=== PATIENT | male | born 1995 | race Two or more races ===

== ENCOUNTER 2024-01-09 09:52 | Inpatient (IN) | payer OTHER ==
[~2024-01-09] VITALS: Ht 180.3 cm; Wt 76.8 kg
--- NOTE | 2024-01-09 11:01 | ED.PDOC ---
GI ASSESSMENT HPI Comments 28y M who presents to the ED for chief complaint of abdominal pain. Pt states he has been having abdominal pain for the past 4 days. Pt states the pain is located by the epigastric region, radiating to the RLQ, constant, rating the pain 4/10, with no associated exacerbating or relieving factors. Pt has associated nausea, vomiting and difficulty voiding but otherwise denies diarrhea, fever,cough, chills, dysuria, hematuria or hematemesis. Pt otherwise denies any recent changes to diet or any recent sick contacts. Pt otherwise has noted BP of 148/80 with all other vitals in normal range. Pt denies these symptoms in the past and denies any past surgeries. Pt denies any other symptoms at this time. Chief Complaint: Abdominal Pain Time Seen by MD: 10:58 Primary Care Provider: DENIES Reviewed Notes: Allergies Allergies: Coded Allergies: NO KNOWN ALLERGIES (Unverified , 01/09/24) Information Source: Patient Mode of Arrival: Ambulatory Brought in by: self Timing: Days Duration: Since onset Past Medical History Past Medical History (Other): heart murmur Surgical History: Denies all surgeries Family History Family History: Unknown Social History Smoker: Non-Smoker Alcohol: Denies ETOH Use Drugs: Marijuana Lives In: Home Constitutional: denies: chills, diaphoresis, fatigue, fever, malaise, sweats, weakness, others EENTM: denies: blurred vision, double vision, ear bleeding, ear discharge, ear drainage, ear pain, ear ringing, eye pain, eye redness, hearing loss, mouth pain, mouth swelling, nasal discharge, nose bleeding, nose congestion, nose pain, photophobia, tearing, throat pain, throat swelling, voice changes, others Respiratory: denies: cough, hemoptysis, orthopnea, SOB at rest, shortness of breath, SOB with excertion, stridor, wheezing, others Cardiovascular: denies: chest pain, dizzy spells, diaphoresis, Dyspnea on exertion, edema, irregular heart beat, left arm pain, lightheadedness, palpitations, PND, syncope, others Gastrointestinal: reports: abdominal pain, nausea, vomiting; denies: abdomen distended, blood streaked bowels, constipated, diarrhea, dysphagia, difficulty swallowing, hematemesis, melena, poor appetite, poor fluid intake, rectal bleeding, rectal pain, others Genitourinary: denies: burning, dysuria, flank pain, frequency, hematuria, incontinence, penile discharge, penile sore, pain, testicle pain, testicle swelling, urgency, others Neurological: denies: dizziness, fainting, headache, left sided numbness, left sided weakness, numbness, paresthesia, pre-existing deficit, right sided numbness, right sided weakness, seizure, speech problems, tingling, tremors, weakness, others Musculoskeletal: denies: back pain, gout, joint pain, joint swelling, muscle pain, muscle stiffness, neck pain, others Integumetry: denies: bruises, change in color, change in hair/nails, dryness, laceration, lesions, lumps, rash, wounds, others Allergic/Immunocompromised: denies: Difficulty Healing, Frequent Infections, Hives, Itching, others Hematologic/Lymphatic: denies: anemia, blood clots, easy bleeding, easy bruisin g, swollen glands, others Endocrine: denies: excessive hunger, excessive sweating, excessive thirst, excessive urination, flushing, intolerance to cold, intolerance to heat, unexplained weight gain, unexplained weight loss, others Psychiatric: denies: anxiety, bipolar disorder, depression, hopeless, panic disorder, schizophrenia, sleepless, suicidal, others All Other Systems: Reviewed and Negative Physical Exam General Appearance: Mild Distress HEENT: Other (Pupils symmetric, no facial asymmetry, moist mucous membranes) Neck: Full Range of Motion, Normal Inspection Respiratory: Lungs Clear, No Accessory Muscle Use, No Respiratory Distress, Normal Breath Sounds Cardiovascular: No Edema, No JVD, Regular Rate/Rhythm Breast Exam: Deferred Gastrointestinal: Epigastric, Soft, Suprapubic, Tenderness Genitalia: Deferred Pelvic: Deferred Rectal: Deferred Extremities: Normal inspection, Normal range of motion, Non-tender, No pedal edema Neurologic: Alert, No Motor Deficits, Normal Affect, Normal Mood, No Sensory Deficits Cerebellar Function: NOT DONE Reflexes: NOT DONE Skin: Dry, Normal Color, Warm Lymphatic: NOT DONE Was a procedure done? Was a procedure done?: No GI differential Dx Differential Diagnosis: Appendicitis, Constipation, Diverticular disease, Gastritis/PUD, Gastroenteritis, Hernia, Inflammatory BD, Pancreatitis, UTI, Dehydration, Electrolyte Imbalance, Food Poisoning, Bacterial, Parasitic, Viral, Kidney Stone X-Ray, Labs, Meds, VS Vital Signs Date Time Temp Pulse Resp B/P (MAP) Pulse Ox O2 Delivery O2 Flow Rate FiO2 01/09/24 10:09 97.8 76 16 148/80 (102) 97 Lab Test 01/09/24 11:00 01/09/24 10:07 Range/Units White Blood Count 11.7 H 4.4-10.8 10^3/uL Red Blood Count 5.03 4.5-5.90 10^6/uL Hemoglobin 15.8 13.5-17.5 g/dL Hematocrit 47.0 41.0-53.0 % Mean Corpuscular Volume 93.5 80.0-100.0 fL Mean Corpuscular Hemoglobin 31.4 28.0-32.0 pg Mean Corpuscular Hemoglobin Concent 33.6 32.0-36.0 g/dL Red Cell Distribution Width 13.1 11.8-14.3 % Platelet Count 276 140-450 10^3/uL Mean Platelet Volume 7.3 6.9-10.8 fL Neutrophils (%) (Auto) 80.8 H 37.0-80.0 % Lymphocytes (%) (Auto) 9.3 L 10.0-50.0 % Monocytes (%) (Auto) 9.3 0.0-12.0 % Eosinophils (%) (Auto) 0.3 0.0-7.0 % Basophils (%) (Auto) 0.3 0.0-2.0 % Neutrophils # (Auto) 9.4 H 1.6-8.6 10 ^3/uL Lymphocytes # (Auto) 1.1 0.4-5.4 10 ^3/uL Monocytes # (Auto) 1.1 0-1.3 10 ^3/uL Eosinophils # (Auto) 0 0-0.8 10 ^3/uL Basophils # (Auto) 0 0-0.2 10 ^3/uL Nucleated Red Blood Cells 0.0 % Sodium Level 139 136-145 mmol/L Potassium Level 3.7 3.5-5.1 mmol/L Chloride Level 106 98-107 mmol/L Carbon Dioxide Level 24 20-31 mmol/L Anion Gap 9 5-15 Blood Urea Nitrogen 13 9-23 mg/dL Creatinine 1.07 0.700-1.30 mg/dL Glomerular Filtration Rate Calc 98 >90 mL/min BUN/Creatinine Ratio 12.1 10.0-20.0 Serum Glucose 107 H 74-106 mg/dL Lactic Acid Level 0.8 0.4-2.0 mmol/L Calcium Level 10.3 8.7-10.4 mg/dL Total Bilirubin 0.5 0.2-1.0 mg/dL Aspartate Amino Transferase (AST) 13 13-40 U/L Alanine Aminotransferase (ALT) 11 7-40 U/L Alkaline Phosphatase 119 H 46-116 U/L Total Protein 8.4 H 5.7-8.2 g/dL Albumin 5.2 H 3.2-4.8 g/dL Urine Color Yellow Yellow Urine Clarity Clear Clear Urine pH 6.0 5.0-9.0 Urine Specific [place] 1.042 H 1.001-1.035 Urine Protein 1+ H Negative Urine Ketones 2+ H Negative Urine Blood 1+ H Negative /uL Urine Nitrite Negative Negative Urine Bilirubin Negative Negative Urine Urobilinogen Normal Negative mg/dL Urine Leukocyte Esterase Negative Negative /uL Urine RBC 10 0 - 3 /hpf Urine WBC 2 0 - 3 /hpf Urine Squamous Epithelial Cells Few <5 /hpf Urine Bacteria None seen None Seen /hpf Urine Mucus Few None Seen Urine Glucose Normal Normal mg/dL PROCEDURE(s): ABPL - CT AB PEL WO CON-NO ORAL OR IV REASON: suprapubic pain,n/v ORDER NUMBER(s): [id number], ACCESSION NUMBER(s): [id number] Procedure: CT CT AB PEL WO CON-NO ORAL OR IV 01/09/2024 10:55 AM Indication: suprapubic pain,n/v Comparison Study: None available at time of dictation. Technique: Axial images were obtained and reformatted in coronal and sagittal planes. All CT scans at this medical facility are performed using dose modulation techniques as appropriate to a performed exam including the following: Automated exposure control was utilized; adjustment of the MA and/or KV according to patient size; and use of iterative reconstruction technique. CT Dose: CTDI volume is 5.91 mGy. Dose-length product is 340.22 mGy*cm FINDINGS: Lower Chest: Unremarkable. Hepatobiliary: Unremarkable. Spleen: Unremarkable. Pancreas: Unremarkable. Adrenal Glands: Unremarkable. tract: The kidneys are normal in size bilaterally without hydronephrosis or nephrolithiasis. The urinary bladder is unremarkable. GI tract: The stomach is grossly normal in appearance. No evidence of small bowel obstruction. Circumferential mural thickening of distal transverse colon, splenic flexure and descending colon noted with mild pericolonic fat stranding adjacent to the splenic flexure. The appendix is not visualized. No inflammatory change is noted in the right lower quadrant. Lymphatics: No mesenteric, retroperitoneal or periportal lymphadenopathy. Vasculature: The abdominal aorta is normal in in caliber. Pelvic Organs: Unremarkable Bones/soft tissues: No acute osseous abnormality. A small fat-containing umbilical hernia noted. Other: None. IMPRESSION: 1. Colitis involving distal transverse colon, splenic flexure and descending colon. This could be infectious or inflammatory in etiology. Recommend clinical and biochemical correlation. X-Ray, Labs, Meds, VS Comment 28-year-old male with no significant past medical history complaining of epigastric pain radiating to the lower abdomen for the last 4 days, associated with nausea, vomiting and constipation Vitals remarkable for BP 148/80 Exam remarkable for epigastric and suprapubic tenderness to palpation CT abdomen and pelvis IMPRESSION: 1. Colitis involving distal transverse colon, splenic flexure and descending colon. This could be infectious or inflammatory in etiology. Recommend clinical and biochemical correlation. CBC remarkable for WBC 11.7, CMP unremarkable, UA protein, ketones, blood, 10 RBCs, 2 WBCs, mucus Patient treated with the following in the ED: 1 L 0.9 normal saline IV bolus, morphine 4 mg IV, Zofran 4 mg IV, Zosyn 4.5 g IV On re-evaluation, patient states pain has improved, vitals stable. Plan is to admit the patient for IV antibiotics, pain control and GI evaluation. Time of 1ST Reevaluation: 11:30 Reevaluation 1ST: Unchanged Time of 2ND Reevaluation: 11:55 Reevaluation 2ND: Improved Patient Education/Counseling: Diagnosis, Treatment Family Education/Counseling: No Family Present Departure 1 Departure Time of Disposition: 11:55 Impression: Primary Impression: Non-specific colitis Disposition: ADMITTED INPATIENT Admit to: Med Surg Condition: Fair Critical Care Note Critical Care Time?: No Stability Stability form required: No Heart Score Heart Score: Heart Score Response (Comments) Value History N/A 0 EKG N/A 0 Age N/A 0 Risk Factors N/A 0 Troponin N/A 0 Total 0 I personally scribed for DMITRI MATHUR MD ([facility]) on 01/09/24 at 11:01. Electronically submitted by Sachin Brooks ([facility]). I personally scribed for DMITRI MATHUR MD ([facility]) on 01/09/24 at 12:04. Electronically submitted by Sachin Brooks ([facility]). DMITRI MATHUR MD Jan 09, 2024 11:01
[2024-01-09 11:17] LABS: Urine Bacteria None Seen /hpf (None Seen)
[2024-01-09 11:35] LABS: Basophils # (auto) 0 10 ^3/uL (0-0.2); Basophils % (auto) 0.3 % (0.0-2.0); Eosinophils # (auto) 0 10 ^3/uL (0-0.8); Eosinophils % (auto) 0.3 % (0.0-7.0); Hemoglobin 15.8 g/dL (13.5-17.5); Lymphocytes # (auto) 1.1 10 ^3/uL (0.4-5.4); Lymphocytes % (auto) 9.3 % (10.0-50.0); Mean Corpuscular Hemoglobin 31.4 pg (28.0-32.0); Mean Corpuscular Hgb Conc. 33.6 g/dL (32.0-36.0); Mean Corpuscular Volume 93.5 fL (80.0-100.0); Monocytes # (auto) 1.1 10 ^3/uL (0-1.3); Monocytes % (auto) 9.3 % (0.0-12.0); Neutrophils # (auto) 9.4 10 ^3/uL (1.6-8.6); Neutrophils % (auto) 80.8 % (37.0-80.0); Platelet Count (auto) 276 10^3/uL (140-450); Red Blood Cells 5.03 10^6/uL (4.5-5.90); Red Cell Distribution Width 13.1 % (11.8-14.3); White Blood Cell 11.7 10^3/uL (4.4-10.8)
[2024-01-09 11:42] LABS: Alanine Aminotransferase 11 U/L (7-40); Albumin 5.2 g/dL (3.2-4.8); Alkaline Phosphatase 119 U/L (46-116); Anion Gap 9 (5-15); Aspartate Aminotransferase 13 U/L (13-40); BUN/Creatinine Ratio 12.1 (10.0-20.0); Bilirubin, Total 0.5 mg/dL (0.2-1.0); Blood Urea Nitrogen 13 mg/dL (9-23); Calcium 10.3 mg/dL (8.7-10.4); Carbon Dioxide 24 mmol/L (20-31); Chloride 106 mmol/L (98-107); Glucose 107 mg/dL (74-106); Potassium 3.7 mmol/L (3.5-5.1); Sodium 139 mmol/L (136-145); Total Protein 8.4 g/dL (5.7-8.2)
[2024-01-09 11:45] LABS: Urine Blood 1+ /uL (Negative); Urine Clarity Clear (Clear); Urine Color Yellow (Yellow); Urine Mucus FEW (None Seen); Urine Protein, UAD 1+ (Negative); Urine Specific Gravity 1.042 (1.001-1.035); Urine Urobilinogen Normal (Negative); Urine WBC 2 /hpf (0 - 3)
--- NOTE | 2024-01-09 11:49 | DVH ---
Procedure: CT CT AB PEL WO CON-NO ORAL OR IV 01/09/2024 10:55 AM Indication: suprapubic pain,n/v Comparison Study: None available at time of dictation. Technique: Axial images were obtained and reformatted in coronal and sagittal planes. All CT scans at this medical facility are performed using dose modulation techniques as appropriate t o a performed exam including the following: Automated exposure control was utilized; adjustment of th e MA and/or KV according to patient size; and use of iterative reconstruction technique. CT Dose: CTDI volume is 5.91 mGy. Dose-length product is 340.22 mGy*cm FINDINGS: Lower Chest: Unremarkable. Hepatobiliary: Unremarkable. Spleen: Unremarkable. Pancreas: Unremarkable. Adrenal Glands: Unremarkable. tract: The kidneys are normal in size bilaterally without hydronephrosis or nephrolithiasis. The urinary bladder is unremarkable. GI tract: The stomach is grossly normal in appearance. No evidence of small bowel obstruction. Circum ferential mural thickening of distal transverse colon, splenic flexure and descending colon noted wit h mild pericolonic fat stranding adjacent to the splenic flexure. The appendix is not visualized. No inflammatory change is noted in the right lower quadrant. Lymphatics: No mesenteric, retroperitoneal or periportal lymphadenopathy. Vasculature: The abdominal aorta is normal in in caliber. Pelvic Organs: Unremarkable Bones/soft tissues: No acute osseous abnormality. A small fat-containing umbilical hernia noted. Other: None. IMPRESSION: 1. Colitis involving distal transverse colon, splenic flexure and descending colon. This could be in fectious or inflammatory in etiology. Recommend clinical and biochemical correlation.
[2024-01-09] MEDS: ONDANSETRON HCL 4 MG/2 ML VIAL IV ONE (12:56)
[2024-01-09] MEDS: MORPHINE SULFATE 4 MG/ML SYR/VIAL IV ONE (13:00)
[2024-01-09] MEDS: SODIUM CHLORIDE 0.9% 2,250 ML IV ONE (13:00)
[2024-01-09] MEDS: PIPERACILLIN-TAZO 4.5GM 100 ML IV ONE (13:01)
[2024-01-09] MEDS: HYDROcodone-ACET 5/325MG TAB PO ONE (14:04)
--- NOTE | 2024-01-09 14:19 | DVHHP2 ---
History of Present Illness Reason for Visit: Abdominal pain History of Present Illness 28-year-old with no stated past medical history comes to the ED for complaints of abdominal pain for the last 4 days patient describes left upper quadrant pain consistently with no stated worsening factors but associated with nausea vomiting trouble with diet denies having any diarrhea or or feelings of constipation denies having hematuria or melena on evaluation in the ED patient had a CT scan showing that he had signs of acute infectious colitis patient was recommended for admission for further evaluation and treatment Review of Systems Constitutional: Yes: Fever, Weakness; No: Chills, Sweats, Malaise, Other Eyes: No: Pain, Vision change, Conjunctivae inflammation, Eyelid inflammation, Other, Redness ENT: No: Ear pain, Ear discharge, Nose pain, Nose discharge, Nose congestion, Mouth pain, Mouth swelling, Throat pain, Throat swelling, Other Respiratory: No: Cough, Dry, Shortness of breath, SOB with excertion, Wheezing, Hemoptysis, Pleuritic Pain, Sputum, Wheezing, Other Cardiovascular: No: Chest Pain, Palpitations, Orthopnea, Paroxysmal Noc. Dyspnea, Edema, Lt Headedness, Other Gastrointestinal: Nausea, Vomiting, Abdominal Pain; No: Diarrhea, Constipation, Melena, Hematochezia, Other Genitourinary: No Dysuria, No Frequency, No Incontinence, No Hematuria, No Retention, No Other Musculoskeletal: No: other, neck pain, shoulder pain, arm pain, back pain, hand pain, leg pain, foot pain Skin: No: Rash, Lesions, Jaundice, Bruising, Other Neurological: No: Weakness, Numbness, Incoordination, Change in speech, Confusion, Seizures, Other Allergies: Coded Allergies: NO KNOWN ALLERGIES (Unverified , 01/09/24) Exam Vital Signs Vital Signs Date Time Temp Pulse Resp B/P (MAP) Pulse Ox O2 Delivery O2 Flow Rate FiO2 01/09/24 13:40 70 15 118/74 01/09/24 13:05 97.1 99 97.1 General Appearance: Alert, Oriented X3, mild distress HEENT: Atraumatic, PERRLA, EOMI Respiratory: Clear to auscultation, Normal air movement Cardiovascular: Regular rate, Normal S1, Normal S2 Abdominal: Normal bowel sounds, Soft, No tenderness Extremities: No clubbing, No cyanosis, No edema Skin: No rashes, No breakdown, No significant lesion Neuro: Normal gait, Normal speech Psych/Mental Status: Mood NL Labs/Xrays Labs Test 01/09/24 11:00 01/09/24 10:07 Range/Units White Blood Count 11.7 H 4.4-10.8 10^3/uL Red Blood Count 5.03 4.5-5.90 10^6/uL Hemoglobin 15.8 13.5-17.5 g/dL Hematocrit 47.0 41.0-53.0 % Mean Corpuscular Volume 93.5 80.0-100.0 fL Mean Corpuscular Hemoglobin 31.4 28.0-32.0 pg Mean Corpuscular Hemoglobin Concent 33.6 32.0-36.0 g/dL Red Cell Distribution Width 13.1 11.8-14.3 % Platelet Count 276 140-450 10^3/uL Mean Platelet Volume 7.3 6.9-10.8 fL Neutrophils (%) (Auto) 80.8 H 37.0-80.0 % Lymphocytes (%) (Auto) 9.3 L 10.0-50.0 % Monocytes (%) (Auto) 9.3 0.0-12.0 % Eosinophils (%) (Auto) 0.3 0.0-7.0 % Basophils (%) (Auto) 0.3 0.0-2.0 % Neutrophils # (Auto) 9.4 H 1.6-8.6 10 ^3/uL Lymphocytes # (Auto) 1.1 0.4-5.4 10 ^3/uL Monocytes # (Auto) 1.1 0-1.3 10 ^3/uL Eosinophils # (Auto) 0 0-0.8 10 ^3/uL Basophils # (Auto) 0 0-0.2 10 ^3/uL Nucleated Red Blood Cells 0.0 % Sodium Level 139 136-145 mmol/L Potassium Level 3.7 3.5-5.1 mmol/L Chloride Level 106 98-107 mmol/L Carbon Dioxide Level 24 20-31 mmol/L Anion Gap 9 5-15 Blood Urea Nitrogen 13 9-23 mg/dL Creatinine 1.07 0.700-1.30 mg/dL Glomerular Filtration Rate Calc 98 >90 mL/min BUN/Creatinine Ratio 12.1 10.0-20.0 Serum Glucose 107 H 74-106 mg/dL Lactic Acid Level 0.8 0.4-2.0 mmol/L Calcium Level 10.3 8.7-10.4 mg/dL Total Bilirubin 0.5 0.2-1.0 mg/dL Aspartate Amino Transferase (AST) 13 13-40 U/L Alanine Aminotransferase (ALT) 11 7-40 U/L Alkaline Phosphatase 119 H 46-116 U/L Total Protein 8.4 H 5.7-8.2 g/dL Albumin 5.2 H 3.2-4.8 g/dL Urine Color Yellow Yellow Urine Clarity Clear Clear Urine pH 6.0 5.0-9.0 Urine Specific [place] 1.042 H 1.001-1.035 Urine Protein 1+ H Negative Urine Ketones 2+ H Negative Urine Blood 1+ H Negative /uL Urine Nitrite Negative Negative Urine Bilirubin Negative Negative Urine Urobilinogen Normal Negative mg/dL Urine Leukocyte Esterase Negative Negative /uL Urine RBC 10 0 - 3 /hpf Urine WBC 2 0 - 3 /hpf Urine Squamous Epithelial Cells Few <5 /hpf Urine Bacteria None seen None Seen /hpf Urine Mucus Few None Seen Urine Glucose Normal Normal mg/dL Assessment/Plan Assessment/Plan Admit to [facility] Infectious colitis IV hydration IV antibiotics P.r.n. medication for pain management We will continue with Zosyn CT scan shows signs of transverse and distal colon colitis Plan discussed with: Patient Problem List: (1) Non-specific colitis Date of Service: Jan 09, 2024 Billing Provider: PEACE LEMON MD Common Visit Codes: [id number] INP/OBS CARE (HIGH) PEACE LEMON MD Jan 09, 2024 14:19
[2024-01-09] MEDS ORDERED: DOCUSATE SOD 100 MG CAP PO PRN (14:45)
[2024-01-09] MEDS ORDERED: ONDANSETRON HCL 4 MG/2 ML VIAL IV PRN (14:45)
[2024-01-09] MEDS ORDERED: HYDROcodone-ACET 5/325MG TAB PO PRN (14:45)
[2024-01-09] MEDS ORDERED: TEMAZEPAM 15 MG CAP PO PRN (14:45)
[2024-01-09] MEDS ORDERED: MAALOX PLUS or MAALOX 30 ML PO PRN (14:45)
[2024-01-09] MEDS ORDERED: MORPHINE SULFATE INJ 2 MG/ml SYRG IV PRN (14:45)
[2024-01-09] MEDS ORDERED: LORazepam 0.5 MG TAB PO PRN (14:45)
[2024-01-09] MEDS: SODIUM CHLORIDE 0.9% 1,000 ML IV SCH (15:42)
[2024-01-09 16:17] VITALS: BP 108/75; PULSE 56; RESP 12; O2SAT 99
[2024-01-09 20:10] VITALS: BP 119/78; PULSE 83; RESP 18; TEMP 98.6; O2SAT 95
[2024-01-09] MEDS: PIPERACILLIN-TAZOB 3.375GM 100 ML IV SCH ×2 (21:50→22:00)
[2024-01-09 22:36] VITALS: BP 130/65; PULSE 65; RESP 18; TEMP 98.5; O2SAT 97
[2024-01-10] VITALS (8 sets, daily range): BP systolic 102–126; BP diastolic 51–64; PULSE 51–64; RESP 15–18; TEMP 98–98.8; O2SAT 94–99
[2024-01-10 06:15] LABS: Basophils # (auto) 0 10 ^3/uL (0-0.2); Basophils % (auto) 0.5 % (0.0-2.0); Eosinophils # (auto) 0.1 10 ^3/uL (0-0.8); Eosinophils % (auto) 1.5 % (0.0-7.0); Hematocrit 38.5 % (41.0-53.0); Hemoglobin 13.3 g/dL (13.5-17.5); Lymphocytes # (auto) 1.2 10 ^3/uL (0.4-5.4); Lymphocytes % (auto) 20.2 % (10.0-50.0); Mean Corpuscular Hemoglobin 31.8 pg (28.0-32.0); Mean Corpuscular Hgb Conc. 34.4 g/dL (32.0-36.0); Mean Corpuscular Volume 92.5 fL (80.0-100.0); Monocytes # (auto) 0.7 10 ^3/uL (0-1.3); Monocytes % (auto) 12.1 % (0.0-12.0); Neutrophils # (auto) 3.8 10 ^3/uL (1.6-8.6); Neutrophils % (auto) 65.7 % (37.0-80.0); Platelet Count (auto) 218 10^3/uL (140-450); Red Blood Cells 4.16 10^6/uL (4.5-5.90); Red Cell Distribution Width 13.2 % (11.8-14.3); White Blood Cell 5.8 10^3/uL (4.4-10.8)
[2024-01-10 06:24] LABS: Chloride 110 mmol/L (98-107); Potassium 3.8 mmol/L (3.5-5.1); Sodium 142 mmol/L (136-145)
[2024-01-10 06:25] LABS: Anion Gap 9 (5-15); Calcium 9.5 mg/dL (8.7-10.4); Carbon Dioxide 23 mmol/L (20-31)
[2024-01-10 06:30] LABS: BUN/Creatinine Ratio 13.3 (10.0-20.0); Blood Urea Nitrogen 13 mg/dL (9-23); Glucose 83 mg/dL (74-106)
[2024-01-10] MEDS: ACETAMINOPHEN 325 MG TAB PO PRN (09:53)
--- NOTE | 2024-01-10 13:25 | DVHPN2 ---
Reviewed: Care Plan, H&P, Labs, Medications, Previous Orders, Radiology Changes from previous H/P or p: No Changes Eyes: No Pain, No Vision change, No Conjunctivae inflammation, No Eyelid inflammation, No Other, No Redness ENT: No Ear pain, No Ear discharge, No Nose pain, No Nose discharge, No Nose congestion, No Mouth pain, No Mouth swelling, No Throat pain, No Throat swelling, No Other Cardiovascular: No Chest Pain, No Palpitations, No Orthopnea, No Paroxysmal Noc. Dyspnea, No Edema, No Lt Headedness, No Other Respiratory: No Cough, No Dry, No Shortness of breath, No SOB with excertion, No Wheezing, No Hemoptysis, No Pleuritic Pain, No Sputum, No Other Gastrointestinal: Nausea, Vomiting, Abdominal Pain; No Diarrhea, No Constipation, No Melena, No Hematochezia, No Other Genitourinary: No Dysuria, No Frequency, No Incontinence, No Hematuria, No Retention, No Other Musculoskeletal: No other, No neck pain, No shoulder pain, No arm pain, No back pain, No hand pain, No leg pain, No foot pain Skin: No Rash, No Lesions, No Jaundice, No Bruising, No Other Objective Vitals Vital Signs Date Time Temp Pulse Resp B/P (MAP) Pulse Ox O2 Delivery O2 Flow Rate FiO2 01/10/24 13:00 98.8 56 16 126/58 (80) 96 98.8 01/09/24 22:36 Room Air* 0 21 Intake/Output Intake and Output 01/10/24 07:00 Intake Total 1075 ml Output Total 0 ml Balance 1075 ml Intake Oral 0 ml IV Total 1075 ml Output Urine Total 0 ml Medications Current Medications Medications Dose Ordered Sig/Charito Route Start Time Stop Time Status Last Admin Dose Admin Sodium Chloride 1,000 ml @ 100 mls/hr Q10H IV 01/09/24 14:45 01/09/24 20:48 100 MLS/HR Lorazepam 0.5 mg Q6HP PRN PO 01/09/24 14:45 Al Hydrox/Mg Hydrox/Simethicone 30 ml Q6HP PRN PO 01/09/24 14:45 Docusate Sodium 100 mg BIDPRN PRN PO 01/09/24 14:45 Acetaminophen 650 mg Q6HP PRN PO 01/09/24 14:45 01/10/24 09:53 650 MG Temazepam 15 mg QHSP PRN PO 01/09/24 14:45 Acetaminophen/ Hydrocodone Bitart 1 tab Q4HP PRN PO 01/09/24 14:45 Ondansetron HCl 4 mg Q4HP PRN IV 01/09/24 14:45 Morphine Sulfate 2 mg Q4HPRN PRN IV 01/09/24 14:45 Piperacillin Sod/ Tazobactam Sod 100 ml @ 25 mls/hr Q6H IV 01/09/24 22:00 01/10/24 09:44 25 MLS/HR Laboratory Results Laboratory Tests 01/10/24 05:42 Chemistry Test 01/10/24 05:42 Calcium Level 9.5 mg/dL (8.7-10.4) Urinalysis Test 01/09/24 10:07 Urine Color Yellow (Yellow) Urine Clarity Clear (Clear) Urine pH 6.0 (5.0-9.0) Urine Specific [place] 1.042 (1.001-1.035) Urine Protein 1+ (Negative) H Urine Ketones 2+ (Negative) H Urine Blood 1+ /uL (Negative) H Urine Nitrite Negative (Negative) Urine Bilirubin Negative (Negative) Urine Urobilinogen Normal mg/dL (Negative) Urine Leukocyte Esterase Negative /uL (Negative) Urine RBC 10 /hpf (0 - 3) Urine WBC 2 /hpf (0 - 3) Urine Squamous Epithelial Cells Few /hpf (<5) Urine Bacteria None seen /hpf (None Seen) Urine Mucus Few (None Seen) Urine Glucose Normal mg/dL (Normal) Labs and/or images reviewed: Labs reviewed by me, Image(s) reviewed by me Assessment/Plan Assessment/Plan Acute colitis: Zosyn Acute abdominal pain Acute dehydration: IV fluids 150 per hour Keep NPO GI consult Plan discussed with: Patient Date of Service: Jan 10, 2024 Billing Provider: JESSY PURI MD Common Visit Codes: [id number] INP/OBS CARE(HIGH) JESSY PURI MD Jan 10, 2024 13:25
[2024-01-10] MEDS: LACTATED RINGER'S 1,000 ML IV SCH (15:00)
--- NOTE | 2024-01-10 18:12 | DVHINCON2 ---
Date of service: Jan 10, 2024 History of Present Illness 28 y/o M pt with no PMH admitted with diarrhea, N/V since past few days. Denies abd pain/GIB. Unsure if any food poisoning, eats outside mostly. No similar sx in the past. Never had EGD/colo Past Medical History Reviewed Past Surgical History Reviewed Family History: Patient reports no known family medical history. Allergies: Coded Allergies: NO KNOWN ALLERGIES (Unverified , 01/09/24) Home Meds No Active Prescriptions or Reported Meds Current Medications Current Medications Medications (Trade) Dose Ordered Sig/Charito Route PRN Reason Start Time Stop Time Status Last Admin Piperacillin Sod/ Tazobactam Sod 100 ml @ 25 mls/hr Q6HR IV 01/09/24 22:00 01/09/24 22:01 DC 01/09/24 21:50 Piperacillin Sod/ Tazobactam Sod 100 ml @ 25 mls/hr Q6H IV 01/09/24 22:00 01/10/24 16:05 Lactated Ringer's 1,000 ml @ 150 mls/hr Q6H40M IV 01/10/24 15:00 Review of Systems 14 point ROS neg except mentioned above Vital Signs Vital Signs Date Time Temp Pulse Resp B/P (MAP) Pulse Ox O2 Delivery O2 Flow Rate FiO2 01/10/24 17:12 98.1 64 16 110/64 (79) 99 98.1 01/09/24 22:36 Room Air* 0 21 Physical Exam GE in no distress CVS: S1S2+ Lungs clear Abdomen: soft, nondistended, tender, BS+ Labs/Diagnostic Data Labs Test 01/10/24 05:42 01/09/24 11:00 01/09/24 10:07 Range/Units White Blood Count 5.8 # 4.4-10.8 10^3/uL Red Blood Count 4.16 L 4.5-5.90 10^6/uL Hemoglobin 13.3 #L 13.5-17.5 g/dL Hematocrit 38.5 #L 41.0-53.0 % Mean Corpuscular Volume 92.5 80.0-100.0 fL Mean Corpuscular Hemoglobin 31.8 28.0-32.0 pg Mean Corpuscular Hemoglobin Concent 34.4 32.0-36.0 g/dL Red Cell Distribution Width 13.2 11.8-14.3 % Platelet Count 218 140-450 10^3/uL Mean Platelet Volume 7.1 6.9-10.8 fL Neutrophils (%) (Auto) 65.7 37.0-80.0 % Lymphocytes (%) (Auto) 20.2 10.0-50.0 % Monocytes (%) (Auto) 12.1 H 0.0-12.0 % Eosinophils (%) (Auto) 1.5 0.0-7.0 % Basophils (%) (Auto) 0.5 0.0-2.0 % Neutrophils # (Auto) 3.8 1.6-8.6 10 ^3/uL Lymphocytes # (Auto) 1.2 0.4-5.4 10 ^3/uL Monocytes # (Auto) 0.7 0-1.3 10 ^3/uL Eosinophils # (Auto) 0.1 0-0.8 10 ^3/uL Basophils # (Auto) 0 0-0.2 10 ^3/uL Nucleated Red Blood Cells 0.0 % Sodium Level 142 136-145 mmol/L Potassium Level 3.8 3.5-5.1 mmol/L Chloride Level 110 H 98-107 mmol/L Carbon Dioxide Level 23 20-31 mmol/L Anion Gap 9 5-15 Blood Urea Nitrogen 13 9-23 mg/dL Creatinine 0.98 0.700-1.30 mg/dL Glomerular Filtration Rate Calc 109 >90 mL/min BUN/Creatinine Ratio 13.3 10.0-20.0 Serum Glucose 83 74-106 mg/dL Calcium Level 9.5 8.7-10.4 mg/dL Lactic Acid Level 0.8 0.4-2.0 mmol/L Total Bilirubin 0.5 0.2-1.0 mg/dL Aspartate Amino Transferase (AST) 13 13-40 U/L Alanine Aminotransferase (ALT) 11 7-40 U/L Alkaline Phosphatase 119 H 46-116 U/L Total Protein 8.4 H 5.7-8.2 g/dL Albumin 5.2 H 3.2-4.8 g/dL Urine Color Yellow Yellow Urine Clarity Clear Clear Urine pH 6.0 5.0-9.0 Urine Specific [place] 1.042 H 1.001-1.035 Urine Protein 1+ H Negative Urine Ketones 2+ H Negative Urine Blood 1+ H Negative /uL Urine Nitrite Negative Negative Urine Bilirubin Negative Negative Urine Urobilinogen Normal Negative mg/dL Urine Leukocyte Esterase Negative Negative /uL Urine RBC 10 0 - 3 /hpf Urine WBC 2 0 - 3 /hpf Urine Squamous Epithelial Cells Few <5 /hpf Urine Bacteria None seen None Seen /hpf Urine Mucus Few None Seen Urine Glucose Normal Normal mg/dL Assessment #Diarrhea, N/V #Colitis of TC and DC on CTAP #Abd pain, N/V -Acute sx likely 2/2 acute GE -On IV abx. Monitor clinical course -Plan colonoscopy only if sx persists or any GIB occurs -Advance diet -Care plan discussed with pt in detail Thank you for the consult Plan discussed with: Patient PAVAN NICHOLS MD Jan 10, 2024 18:12
[2024-01-11] VITALS (8 sets, daily range): BP systolic 103–134; BP diastolic 49–89; PULSE 51–86; RESP 13–17; TEMP 97.5–98.3; O2SAT 97–98
--- NOTE | 2024-01-11 11:08 | DVHPN2 ---
Reviewed: Care Plan, H&P, Labs, Medications, Previous Orders, Radiology Changes from previous H/P or p: No Changes Eyes: No Pain, No Vision change, No Conjunctivae inflammation, No Eyelid inflammation, No Other, No Redness ENT: No Ear pain, No Ear discharge, No Nose pain, No Nose discharge, No Nose congestion, No Mouth pain, No Mouth swelling, No Throat pain, No Throat swelling, No Other Cardiovascular: No Chest Pain, No Palpitations, No Orthopnea, No Paroxysmal Noc. Dyspnea, No Edema, No Lt Headedness, No Other Respiratory: No Cough, No Dry, No Shortness of breath, No SOB with excertion, No Wheezing, No Hemoptysis, No Pleuritic Pain, No Sputum, No Other Gastrointestinal: Nausea, Vomiting, Abdominal Pain; No Diarrhea, No Constipation, No Melena, No Hematochezia, No Other Genitourinary: No Dysuria, No Frequency, No Incontinence, No Hematuria, No Retention, No Other Musculoskeletal: No other, No neck pain, No shoulder pain, No arm pain, No back pain, No hand pain, No leg pain, No foot pain Skin: No Rash, No Lesions, No Jaundice, No Bruising, No Other Objective Vitals Vital Signs Date Time Temp Pulse Resp B/P (MAP) Pulse Ox O2 Delivery O2 Flow Rate FiO2 01/11/24 09:00 97.7 53 17 127/74 (91) 97 97.7 01/10/24 20:00 Room Air* 0 21 Intake/Output Intake and Output 01/11/24 07:00 Intake Total 1825 ml Balance 1825 ml Intake Oral 500 ml IV Total 1325 ml # Voids 9 Medications Current Medications Medications Dose Ordered Sig/Charito Route Start Time Stop Time Status Last Admin Dose Admin Lorazepam 0.5 mg Q6HP PRN PO 01/09/24 14:45 Al Hydrox/Mg Hydrox/Simethicone 30 ml Q6HP PRN PO 01/09/24 14:45 Docusate Sodium 100 mg BIDPRN PRN PO 01/09/24 14:45 Acetaminophen 650 mg Q6HP PRN PO 01/09/24 14:45 01/10/24 09:53 650 MG Temazepam 15 mg QHSP PRN PO 01/09/24 14:45 Acetaminophen/ Hydrocodone Bitart 1 tab Q4HP PRN PO 01/09/24 14:45 Ondansetron HCl 4 mg Q4HP PRN IV 01/09/24 14:45 Morphine Sulfate 2 mg Q4HPRN PRN IV 01/09/24 14:45 Piperacillin Sod/ Tazobactam Sod 100 ml @ 25 mls/hr Q6H IV 01/09/24 22:00 01/11/24 10:05 25 MLS/HR Lactated Ringer's 1,000 ml @ 150 mls/hr Q6H40M IV 01/10/24 15:00 01/11/24 06:48 150 MLS/HR Laboratory Results Laboratory Tests 01/10/24 05:42 Urinalysis Test 01/09/24 10:07 Urine Color Yellow (Yellow) Urine Clarity Clear (Clear) Urine pH 6.0 (5.0-9.0) Urine Specific [place] 1.042 (1.001-1.035) Urine Protein 1+ (Negative) H Urine Ketones 2+ (Negative) H Urine Blood 1+ /uL (Negative) H Urine Nitrite Negative (Negative) Urine Bilirubin Negative (Negative) Urine Urobilinogen Normal mg/dL (Negative) Urine Leukocyte Esterase Negative /uL (Negative) Urine RBC 10 /hpf (0 - 3) Urine WBC 2 /hpf (0 - 3) Urine Squamous Epithelial Cells Few /hpf (<5) Urine Bacteria None seen /hpf (None Seen) Urine Mucus Few (None Seen) Urine Glucose Normal mg/dL (Normal) Labs and/or images reviewed: Labs reviewed by me, Image(s) reviewed by me Assessment/Plan Assessment/Plan Acute colitis: Zosyn Acute abdominal pain Acute dehydration: IV fluids 150 per hour Keep NPO GI consult from Dr Sosa pending Plan discussed with: Patient My Orders Orders - JESSY PURI MD Procedure Category Date Status Time * 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
--- NOTE | 2024-01-11 12:26 | DVHINCON2 ---
Date of service: Jan 11, [address] Richardson Reason for Consultation Abdominal pain diarrhea History of Present Illness This 28-year-old male presented to the emergency room with complaints of abdominal pain and periumbilical area in both lower quadrants verbal three four days with diarrhea Patient denied any unusual food ingestion no history of any travel No rectal bleeding no nausea vomiting or other upper GI symptoms CT scan showed possible mild colitis and hence the reason for GI Patient is already feeling better now without any major symptoms Past Medical History Unremarkable Past Surgical History None Family History: Patient reports no known family medical history. Family History Noncontributory Social History Denies smoking or drinking Allergies: Coded Allergies: NO KNOWN ALLERGIES (Unverified , 01/09/24) Home Meds No Active Prescriptions or Reported Meds Current Medications Current Medications Medications (Trade) Dose Ordered Sig/Charito Route PRN Reason Start Time Stop Time Status Last Admin Lactated Ringer's 1,000 ml @ 150 mls/hr Q6H40M IV 01/10/24 15:00 01/11/24 06:48 Review of Systems Noncontributing Vital Signs Vital Signs Date Time Temp Pulse Resp B/P (MAP) Pulse Ox O2 Delivery O2 Flow Rate FiO2 01/11/24 09:00 97.7 53 17 127/74 (91) 97 97.7 01/10/24 20:00 Room Air* 0 21 Physical Exam Originally built and nourished male in no acute distress Vital stable HEENT examination no pallor no icterus Neck is supple no lymph nodes Lungs Cardiovascular unremarkable Abdomen soft mild tenderness in both lower quadrants no rigidity no guarding No masses Labs/Diagnostic Data Labs Test 01/10/24 05:42 01/09/24 11:00 01/09/24 10:07 Range/Units White Blood Count 5.8 # 4.4-10.8 10^3/uL Red Blood Count 4.16 L 4.5-5.90 10^6/uL Hemoglobin 13.3 #L 13.5-17.5 g/dL Hematocrit 38.5 #L 41.0-53.0 % Mean Corpuscular Volume 92.5 80.0-100.0 fL Mean Corpuscular Hemoglobin 31.8 28.0-32.0 pg Mean Corpuscular Hemoglobin Concent 34.4 32.0-36.0 g/dL Red Cell Distribution Width 13.2 11.8-14.3 % Platelet Count 218 140-450 10^3/uL Mean Platelet Volume 7.1 6.9-10.8 fL Neutrophils (%) (Auto) 65.7 37.0-80.0 % Lymphocytes (%) (Auto) 20.2 10.0-50.0 % Monocytes (%) (Auto) 12.1 H 0.0-12.0 % Eosinophils (%) (Auto) 1.5 0.0-7.0 % Basophils (%) (Auto) 0.5 0.0-2.0 % Neutrophils # (Auto) 3.8 1.6-8.6 10 ^3/uL Lymphocytes # (Auto) 1.2 0.4-5.4 10 ^3/uL Monocytes # (Auto) 0.7 0-1.3 10 ^3/uL Eosinophils # (Auto) 0.1 0-0.8 10 ^3/uL Basophils # (Auto) 0 0-0.2 10 ^3/uL Nucleated Red Blood Cells 0.0 % Sodium Level 142 136-145 mmol/L Potassium Level 3.8 3.5-5.1 mmol/L Chloride Level 110 H 98-107 mmol/L Carbon Dioxide Level 23 20-31 mmol/L Anion Gap 9 5-15 Blood Urea Nitrogen 13 9-23 mg/dL Creatinine 0.98 0.700-1.30 mg/dL Glomerular Filtration Rate Calc 109 >90 mL/min BUN/Creatinine Ratio 13.3 10.0-20.0 Serum Glucose 83 74-106 mg/dL Calcium Level 9.5 8.7-10.4 mg/dL Lactic Acid Level 0.8 0.4-2.0 mmol/L Total Bilirubin 0.5 0.2-1.0 mg/dL Aspartate Amino Transferase (AST) 13 13-40 U/L Alanine Aminotransferase (ALT) 11 7-40 U/L Alkaline Phosphatase 119 H 46-116 U/L Total Protein 8.4 H 5.7-8.2 g/dL Albumin 5.2 H 3.2-4.8 g/dL Urine Color Yellow Yellow Urine Clarity Clear Clear Urine pH 6.0 5.0-9.0 Urine Specific [place] 1.042 H 1.001-1.035 Urine Protein 1+ H Negative Urine Ketones 2+ H Negative Urine Blood 1+ H Negative /uL Urine Nitrite Negative Negative Urine Bilirubin Negative Negative Urine Urobilinogen Normal Negative mg/dL Urine Leukocyte Esterase Negative Negative /uL Urine RBC 10 0 - 3 /hpf Urine WBC 2 0 - 3 /hpf Urine Squamous Epithelial Cells Few <5 /hpf Urine Bacteria None seen None Seen /hpf Urine Mucus Few None Seen Urine Glucose Normal Normal mg/dL Assessment 28-year-old with complaints of abdominal pain and some diarrhea no history of any unusual from the food ingestion preserved been having stomach issues for the last three four days. His symptoms are better now and no nausea no vomiting no diarrhea no abdominal pain so much better. CT scan showed some mild infectious colitis Clinical impression possible gastroenteritis Patient is much better now Plan/Recommendation Since patient is clinically better we will increase the diet and see how things go if diarrhea or symptoms worsen may need further evaluation including stool studies and other GI workup as necessary Thank you Dr. Jeannie Chang discussed with: Patient AMY SCHROEDER MD Jan 11, 2024 12:26
[2024-01-12 01:00] VITALS: BP 115/48; PULSE 59; RESP 13; TEMP 97.8; O2SAT 99
[2024-01-12 05:00] VITALS: BP 97/64; PULSE 55; RESP 13; TEMP 97.7; O2SAT 97
[2024-01-12 07:30] VITALS: PULSE 86; RESP 13; O2SAT 98
[2024-01-12 09:00] VITALS: BP 111/69; PULSE 56; RESP 17; TEMP 97.5; O2SAT 98
[2024-01-12 10:55] LABS: Hepatitis B Surface Antigen Negative (Negative); Hepatitis C Antibody Negative (Negative)
[2024-01-12] MEDS ORDERED: LEVO500T91 PO (11:00)
[2024-01-12] MEDS ORDERED: METR-344 PO (11:00)
--- NOTE | 2024-01-12 11:02 | DVHPN2 ---
Reviewed: Care Plan, H&P, Labs, Medications, Previous Orders, Radiology Changes from previous H/P or p: No Changes Eyes: No Pain, No Vision change, No Conjunctivae inflammation, No Eyelid inflammation, No Other, No Redness ENT: No Ear pain, No Ear discharge, No Nose pain, No Nose discharge, No Nose congestion, No Mouth pain, No Mouth swelling, No Throat pain, No Throat swelling, No Other Cardiovascular: No Chest Pain, No Palpitations, No Orthopnea, No Paroxysmal Noc. Dyspnea, No Edema, No Lt Headedness, No Other Respiratory: No Cough, No Dry, No Shortness of breath, No SOB with excertion, No Wheezing, No Hemoptysis, No Pleuritic Pain, No Sputum, No Other Gastrointestinal: Nausea, Vomiting, Abdominal Pain; No Diarrhea, No Constipation, No Melena, No Hematochezia, No Other Genitourinary: No Dysuria, No Frequency, No Incontinence, No Hematuria, No Retention, No Other Musculoskeletal: No other, No neck pain, No shoulder pain, No arm pain, No back pain, No hand pain, No leg pain, No foot pain Skin: No Rash, No Lesions, No Jaundice, No Bruising, No Other Objective Vitals Vital Signs Date Time Temp Pulse Resp B/P (MAP) Pulse Ox O2 Delivery O2 Flow Rate FiO2 01/12/24 09:00 97.5 56 17 111/69 (83) 98 97.5 01/12/24 07:30 Room Air* 0 21 Intake/Output Intake and Output 01/12/24 07:00 Intake Total 3375 ml Output Total 0 ml Balance 3375 ml Intake Oral 3250 ml IV Total 125 ml Stool Total 0 ml # Voids 11 # Bowel Movements 2 Medications Current Medications Medications Dose Ordered Sig/Charito Route Start Time Stop Time Status Last Admin Dose Admin Lorazepam 0.5 mg Q6HP PRN PO 01/09/24 14:45 Al Hydrox/Mg Hydrox/Simethicone 30 ml Q6HP PRN PO 01/09/24 14:45 Docusate Sodium 100 mg BIDPRN PRN PO 01/09/24 14:45 Acetaminophen 650 mg Q6HP PRN PO 01/09/24 14:45 01/11/24 21:42 650 MG Temazepam 15 mg QHSP PRN PO 01/09/24 14:45 Acetaminophen/ Hydrocodone Bitart 1 tab Q4HP PRN PO 01/09/24 14:45 Ondansetron HCl 4 mg Q4HP PRN IV 01/09/24 14:45 Morphine Sulfate 2 mg Q4HPRN PRN IV 01/09/24 14:45 Piperacillin Sod/ Tazobactam Sod 100 ml @ 25 mls/hr Q6H IV 01/09/24 22:00 01/12/24 09:12 25 MLS/HR Lactated Ringer's 1,000 ml @ 150 mls/hr Q6H40M IV 01/10/24 15:00 01/12/24 00:20 150 MLS/HR Laboratory Results Laboratory Tests 01/10/24 05:42 Urinalysis Test 01/09/24 10:07 Urine Color Yellow (Yellow) Urine Clarity Clear (Clear) Urine pH 6.0 (5.0-9.0) Urine Specific [place] 1.042 (1.001-1.035) Urine Protein 1+ (Negative) H Urine Ketones 2+ (Negative) H Urine Blood 1+ /uL (Negative) H Urine Nitrite Negative (Negative) Urine Bilirubin Negative (Negative) Urine Urobilinogen Normal mg/dL (Negative) Urine Leukocyte Esterase Negative /uL (Negative) Urine RBC 10 /hpf (0 - 3) Urine WBC 2 /hpf (0 - 3) Urine Squamous Epithelial Cells Few /hpf (<5) Urine Bacteria None seen /hpf (None Seen) Urine Mucus Few (None Seen) Urine Glucose Normal mg/dL (Normal) Labs and/or images reviewed: Labs reviewed by me, Image(s) reviewed by me Assessment/Plan Assessment/Plan Acute colitis: Zosyn Acute abdominal pain Acute dehydration: IV fluids 150 per hour Keep NPO GI consult by Dr. Dennis appreciated Plan discussed with: Patient Date of Service: Jan 12, 2024 Billing Provider: JESSY PURI MD Common Visit Codes: [id number] INP/OBS CARE(HIGH) JESSY PURI MD Jan 12, 2024 11:02
--- NOTE | 2024-01-12 11:03 | DVHDS2 ---
Discharge Summary Date of Admission Jan 09, 2024 at 14:40 Date of Discharge: Jan 12, 2024 Admitting Diagnosis Acute abdominal pain Wounds: None Labs/Diagnostic Data: Laboratory Results Test 01/10/24 05:42 01/09/24 11:00 01/09/24 10:07 White Blood Count 5.8 10^3/uL (4.4-10.8) Red Blood Count 4.16 10^6/uL (4.5-5.90) Hemoglobin 13.3 g/dL (13.5-17.5) Hematocrit 38.5 % (41.0-53.0) Mean Corpuscular Volume 92.5 fL (80.0-100.0) Mean Corpuscular Hemoglobin 31.8 pg (28.0-32.0) Mean Corpuscular Hemoglobin Concent 34.4 g/dL (32.0-36.0) Red Cell Distribution Width 13.2 % (11.8-14.3) Platelet Count 218 10^3/uL (140-450) Mean Platelet Volume 7.1 fL (6.9-10.8) Neutrophils (%) (Auto) 65.7 % (37.0-80.0) Lymphocytes (%) (Auto) 20.2 % (10.0-50.0) Monocytes (%) (Auto) 12.1 % (0.0-12.0) Eosinophils (%) (Auto) 1.5 % (0.0-7.0) Basophils (%) (Auto) 0.5 % (0.0-2.0) Neutrophils # (Auto) 3.8 10 ^3/uL (1.6-8.6) Lymphocytes # (Auto) 1.2 10 ^3/uL (0.4-5.4) Monocytes # (Auto) 0.7 10 ^3/uL (0-1.3) Eosinophils # (Auto) 0.1 10 ^3/uL (0-0.8) Basophils # (Auto) 0 10 ^3/uL (0-0.2) Nucleated Red Blood Cells 0.0 % Sodium Level 142 mmol/L (136-145) Potassium Level 3.8 mmol/L (3.5-5.1) Chloride Level 110 mmol/L (98-107) Carbon Dioxide Level 23 mmol/L (20-31) Anion Gap 9 (5-15) Blood Urea Nitrogen 13 mg/dL (9-23) Creatinine 0.98 mg/dL (0.700-1.30) Glomerular Filtration Rate Calc 109 mL/min (>90) BUN/Creatinine Ratio 13.3 (10.0-20.0) Serum Glucose 83 mg/dL (74-106) Calcium Level 9.5 mg/dL (8.7-10.4) Hepatitis B Surface Antigen Negative (Negative) Hepatitis C Antibody Negative (Negative) Lactic Acid Level 0.8 mmol/L (0.4-2.0) Total Bilirubin 0.5 mg/dL (0.2-1.0) Aspartate Amino Transferase (AST) 13 U/L (13-40) Alanine Aminotransferase (ALT) 11 U/L (7-40) Alkaline Phosphatase 119 U/L (46-116) Total Protein 8.4 g/dL (5.7-8.2) Albumin 5.2 g/dL (3.2-4.8) Urine Color Yellow (Yellow) Urine Clarity Clear (Clear) Urine pH 6.0 (5.0-9.0) Urine Specific [place] 1.042 (1.001-1.035) Urine Protein 1+ (Negative) Urine Ketones 2+ (Negative) Urine Blood 1+ /uL (Negative) Urine Nitrite Negative (Negative) Urine Bilirubin Negative (Negative) Urine Urobilinogen Normal mg/dL (Negative) Urine Leukocyte Esterase Negative /uL (Negative) Urine RBC 10 /hpf (0 - 3) Urine WBC 2 /hpf (0 - 3) Urine Squamous Epithelial Cells Few /hpf (<5) Urine Bacteria None seen /hpf (None Seen) Urine Mucus Few (None Seen) Urine Glucose Normal mg/dL (Normal) Other Laboratory Tests 01/10/24 05:42 Brief Hx & Hospital Course: Admitted for abdominal pain CT abdomen pelvis showed acute colitis treated with IV antibiotics and IV fluids for dehydration seen by GI Dr. Dennis patient feels better afebrile at the time of discharge vital signs are stable tolerating regular diet discharged home on Levaquin Flagyl and if he will follow up with his primary doctor Consults/Reason for consult SOFYA Dennis Operations or Procedures CT abdomen pelvis without contrast Condition at Discharge: Fair Final Diagnosis/Problems List Acute colitis resolved Discharge Disposition: Home Discharge Instruct/Medications Diet: Regular Activity: Light activity Follow Up/Referral: Use medications as prescribed Follow up with your primary Dr Medications: Levaquin Flagyl Transmitted to [facility] 39 (Time taken for discharge summary 39 minutes) Discharge Statement: "Patient was advised to return to the ER or call 911 if any headaches, dizziness, shortness of breath, chest pain, abdominal pain, bleeding, fevers, or worsening of medical condition. Patient was counseled about treatment plan, medications, possible side effects, patientverbalized understanding. All questions were answered to the best of my ability. This discharge took greater then 30 minutes in planning, reviewing documentation, counseling the patient, and discussing with other team members." ASSESSMENT ASSESSMENT Hospital Course Improved Assessment Acute colitis resolved Date of Service: Jan 12, 2024 Billing Provider: JESSY PURI MD Common Visit Codes: [id number] DISCH DAY >30min JESSY PURI MD Jan 12, 2024 11:03
[2024-01-12 11:22] VITALS: TEMP 36.4
== END 2024-01-12 11:57 | disposition home or self-care (01) | DRG 248 ==
LOC: ER 09:52 → OVERFLOW 14:40 → WEST WING 22:18
PROVIDERS: ADMIT Hospitalist; ATTEND Family Medicine
DX: A04.9 Bacterial intestinal infection, unspecified (principal); E86.0 Dehydration; Z79.899 Other long term (current) drug therapy
CPT/HCPCS: 36415; 74176; 80048; 80053; 81001; 83605; 85025; 86803; 87340; 96365; 96366; 96375; G0378; J2405; J2543

== ENCOUNTER 2024-01-20 18:09 | Emergency (ER) | payer OTHER ==
[~2024-01-20] VITALS: Ht 180.3 cm; Wt 80.0 kg
[~2024-01-20 18:09] MED LIST: LEVO500T91 PO; METR-344 PO
--- NOTE | 2024-01-20 20:10 | ED.PDOC ---
Back pain HPI HPI Comments THIS IS A 28-YEAR-OLD MALE PRESENTS TO THE ED CHIEF COMPLAINT LEFT ANKLE PAIN. PATIENT STATES EARLIER TODAY HE SLIPPED AND FELL AND LANDED WRONG IN HIS LEFT ANKLE AND HEARD A SNAP AND HAD SUDDEN ONSET OF SEVERE PAIN. HE NOTES PAIN 10/10 LEFT LATERAL ANKLE SHARP THROBBING IN NATURE RADIATING UP HIS LEG. STATES HAS NOT TAKEN ANY [id number] MEDICATION. DENIES NUMBNESS, WEAKNESS, OR ANY OTHER KNOWN INJURY. Chief Complaint: Lower Extremity Time Seen by MD: 18:19 Primary Care Provider: NONE Reviewed Notes: Nurses Notes, Medications, Allergies Allergies: Coded Allergies: NO KNOWN ALLERGIES (Unverified , 01/09/24) Home Meds Active Scripts Metronidazole (Flagyl) 500 Mg Tab, 1 TAB PO TID, #30 TAB Prov:JESSY PURI MD 01/12/24 Levofloxacin Hemihydrate (LEVAQUIN 500 MG) 500 Mg Tab, 1 TAB PO DAILY, #7 TAB Prov:JESSY PURI MD 01/12/24 Information Source: Patient Mode of Arrival: Wheelchair Past Medical History PAST MEDICAL HISTORY: Denies Surgical History: Denies all surgeries Family History Family History: Reviewed,noncontributory to illness, Unknown Social History Smoker: Non-Smoker Alcohol: Denies ETOH Use Drugs: Marijuana Lives In: Home Constitutional: denies: chills, diaphoresis, fatigue, fever, malaise, sweats, weakness, others EENTM: denies: blurred vision, double vision, ear bleeding, ear discharge, ear drainage, ear pain, ear ringing, eye pain, eye redness, hearing loss, mouth pain, mouth swelling, nasal discharge, nose bleeding, nose congestion, nose pain, photophobia, tearing, throat pain, throat swelling, voice changes, others Respiratory: denies: cough, hemoptysis, orthopnea, SOB at rest, shortness of breath, SOB with excertion, stridor, wheezing, others Cardiovascular: denies: chest pain, dizzy spells, diaphoresis, Dyspnea on exertion, edema, irregular heart beat, left arm pain, lightheadedness, palpitations, PND, syncope, others Gastrointestinal: denies: abdomen distended, abdominal pain, blood streaked bowels, constipated, diarrhea, dysphagia, difficulty swallowing, hematemesis, melena, nausea, poor appetite, poor fluid intake, rectal bleeding, rectal pain, vomiting, others Genitourinary: denies: burning, dysuria, flank pain, frequency, hematuria, incontinence, penile discharge, penile sore, pain, testicle pain, testicle swelling, urgency, others Neurological: denies: dizziness, fainting, headache, left sided numbness, left sided weakness, numbness, paresthesia, pre-existing deficit, right sided numbness, right sided weakness, seizure, speech problems, tingling, tremors, weakness, others Musculoskeletal: reports: others (LEFT ANKLE PAIN); denies: back pain, gout, joint pain, joint swelling, muscle pain, muscle stiffness, neck pain Integumetry: denies: bruises, change in color, change in hair/nails, dryness, laceration, lesions, lumps, rash, wounds, others Allergic/Immunocompromised: denies: Difficulty Healing, Frequent Infections, Hives, Itching, others Hematologic/Lymphatic: denies: anemia, blood clots, easy bleeding, easy bruising, swollen glands, others Endocrine: denies: excessive hunger, excessive sweating, excessive thirst, excessive urination, flushing, intolerance to cold, intolerance to heat, unexplained weight gain, unexplained weight loss, others Psychiatric: denies: anxiety, bipolar disorder, depression, hopeless, panic disorder, schizophrenia, sleepless, suicidal, others Physical Exam General Appearance: No Apparent Distress, Normal HEENT: Pharynx Normal Neck: Full Range of Motion, Non-Tender Respiratory: Chest Non-Tender, Lungs Clear, No Accessory Muscle Use, No Respiratory Distress, Normal Breath Sounds Cardiovascular: No Murmur, Normal Peripheral Pulses, Regular Rate/Rhythm Breast Exam: Deferred Gastrointestinal: No Organomegaly, Non Tender, No Pulsatile Mass, Normal Bowel Sounds, Soft Genitalia: Deferred Pelvic: Deferred Rectal: Deferred Extremities: Normal capillary refill, Normal inspection, Normal range of motion, Non-tender, No pedal edema Musculoskeletal : Location: Left Extremity Location: Ankle (MODERATE EDEMA LEFT DISTAL LATERAL ASPECT WITH MODERATE TENDERNESS NO NOTED CREPITUS OR BONE PROMINENCE. 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 Was a procedure done?: No Back Pain Differential Dx Differential Diagnosis: Fracture X-Ray, Labs, Meds, VS Vital Signs Date Time Temp Pulse Resp B/P (MAP) Pulse Ox O2 Delivery O2 Flow Rate FiO2 01/20/24 18:34 99.0 118 16 111/63 (79) 97 Current Medications Medications (Trade) Dose Ordered Sig/Charito Route Start Time Stop Time Status Last Admin Ibuprofen (Motrin Tablet) 800 mg ONCE ONCE PO 01/20/24 20:15 01/20/24 20:16 DC 01/20/24 20:17 Acetaminophen/ Hydrocodone Bitart ([place] 5/325MG Tab) 2 tab ONCE ONCE PO 01/20/24 20:15 01/20/24 20:16 DC 01/20/24 20:18 X-Ray, Labs, Meds, VS Comment DISTAL LATERAL MALLEOLUS FRACTURE PATIENT PLACED IN DORSAL SPLINT CRUTCHES GIVEN IN TRAINED. ICE APPLIED NORCO 10 MG P.O. GIVEN AND IBUPROFEN 800. PATIENT REPORTS IMPROVEMENT IN SYMPTOMS AND FUNCTION REQUESTING DISCHARGE AT THIS TIME. PATIENT TO FOLLOW UP WITH ORTHO CALL ON TUESDAY MORNING ADVISED NONWEIGHTBEARING WITH CRUTCHES. ADVISED TO KEEP THE SPLINT ON UNTIL HE FOLLOWS UP WITH ORTHO AND. ER RETURN PRECAUTIONS GIVEN PATIENT INDICATED UNDERSTANDING AGREES WITH DISCHARGE PLAN OF CARE ADVISED ON AIMEE. Time of 1ST Reevaluation: 20:29 Reevaluation 1ST: Improved Patient Education/Counseling: Diagnosis, Treatment, Prognosis, Need For Follow Up Family Education/Counseling: No Family Present Departure 1 Departure Time of Disposition: 20:29 Impression: Primary Impression: Fracture of malleolus of left ankle Qualified Codes: S82.892A - Other fracture of left lower leg, initial encounter for closed fracture Disposition: HOME / SELF CARE / HOMELESS Condition: Stable Discharged With: Self Critical Care Note Critical Care Time?: No Stability Stability form required: AGUSTÍN Ortez Jan 20, 2024 20:10
[2024-01-20] MEDS: IBUPROFEN 800 MG TAB PO ONE (20:17)
--- NOTE | 2024-01-20 20:17 | DVH ---
XY L ANKLE 3 VIEW, INDICATION: INJURY/PAIN TECHNICAL DATA:Frontal , oblique and lateral views were obtained of the left ankle. COMPARISON: None Findings/ IMPRESSION: Mildly displaced oblique fracture through the lateral malleolus with significant adjacent soft tissue edema and moderate ankle joint effusion.
[2024-01-20] MEDS: HYDROcodone-ACET 5/325MG TAB PO ONE (20:18)
[2024-01-20 20:53] VITALS: BP 104/64; PULSE 93; RESP 18; TEMP 98.4; O2SAT 96
[2024-01-22] MEDS ORDERED: IBUP-1456 PO (14:15)
[2024-01-22] MEDS ORDERED: ACET-1304 PO (14:15)
== END 2024-01-20 21:12 | disposition home or self-care (01) ==
LOC: ER 18:12
DX: S82.62XA Displaced fracture of lateral malleolus of left fibula, initial encounter for closed fracture (principal); F12.10 Cannabis abuse, uncomplicated; R60.0 Localized edema; W01.0XXA Fall on same level from slipping, tripping and stumbling without subsequent striking against object, initial encounter; Y93.89 Activity, other specified; Y92.89 Other specified places as the place of occurrence of the external cause; Y99.8 Other external cause status
CPT/HCPCS: 29515; 73610